=== PATIENT | female | born 1945 | race African-American/Black ===

== ENCOUNTER 2017-03-06 17:36 | Inpatient (IN) | payer OTHER, MEDICARE ==
[~2017-03-06] VITALS: Ht 167.6 cm; Wt 98.0 kg
[2017-03-06 17:47] VITALS: BP 218/94; PULSE 88; RESP 24; TEMP 97.5; O2SAT 93
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
[2017-03-06] MEDS ORDERED: SODIUM CHLORID 0.9% 500 ML INJ 500 ML IV ONE (19:00)
[2017-03-06] MEDS ORDERED: MORPHINE SULFATE 4 MG/ML INJ IV PUSH ONE ×2 (19:00→20:30)
[2017-03-06 19:04] VITALS: BP 141/91; PULSE 95; RESP 22; O2SAT 93
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
[2017-03-06] MEDS ORDERED: ASPI325T PO (19:12)
[2017-03-06] MEDS ORDERED: PROPOFOL 500 MG/50 ML BTL IV ONE (19:15)
[2017-03-06] MEDS ORDERED: PROPOFOL 500 MG/50 ML INJ 50 ML ONE (19:21)
[2017-03-06 20:00] VITALS: O2SAT 98
[2017-03-06] MEDS ORDERED: CARD120T4 PO (20:06)
[2017-03-06] MEDS ORDERED: OMEP20TA PO (20:06)
[2017-03-06] MEDS ORDERED: ISOS20TA PO (20:06)
[2017-03-06] MEDS ORDERED: LOSA50TA PO (20:06)
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
[2017-03-06 20:24] LABS: BASOPHIL % 0.3 % (0.0-2.0); EOSINOPHIL # 0.1 TH/MM3 (0-0.4); EOSINOPHIL % 0.5 % (0.0-4.0); HEMATOCRIT 44.1 % (35.0-46.0); HEMO FLAGS DIFF FINAL; LYMPH % 11.9 % (9.0-44.0); LYMPHOCYTE # 1.5 TH/MM3 (1.0-4.8); MEAN CELL VOLUME 90.9 FL (80.0-100.0); MEAN CORPUSCULAR HEMOGLOBIN 29.2 PG (27.0-34.0); MEAN CORPUSCULAR HGB CONC 32.1 % (32.0-36.0); MONO % 5.8 % (0.0-8.0); NEUT % 81.5 % (16.0-70.0); PLATELET COUNT 275 TH/MM3 (150-450); RED BLOOD COUNT 4.85 MIL/MM3 (4.00-5.30); RED CELL DISTRIBUTION WIDTH 14.2 % (11.6-17.2); WHITE BLOOD COUNT 12.2 TH/MM3 (4.0-11.0)
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
[2017-03-06] MEDS ORDERED: ceFAZolin 2 GM PREMIX 50 ML IV ONE (20:30)
[2017-03-06] MEDS ORDERED: TETANUS/DIPHTHERIA TOXOID ADULT 0.5 ML VIAL IM ONE (20:30)
[2017-03-06 20:42] LABS: BICARBONATE 21.4 MEQ/L (21.0-32.0); POTASSIUM 4.2 MEQ/L (3.5-5.1)
[2017-03-06] MEDS ORDERED: MAGNESIUM HYDROXIDE SUSP 30 ML CUP PO PRN (21:00)
[2017-03-06] MEDS ORDERED: CHLORHEXIDINE GLUCONATE 2 % 1 PACK (2 CLOTHS) TOP PRN (21:00)
[2017-03-06] MEDS ORDERED: MISCELLANEOUS NURSING INFORMATION XX SCH (21:00)
[2017-03-06] MEDS ORDERED: SODIUM CHLORIDE 0.9% FLUSH 10 ML FLUSH IV FLUSH PRN (21:00)
[2017-03-06] MEDS ORDERED: ONDANSETRON HCL 4 MG/2 ML VIAL IV PRN (21:00)
[2017-03-06] MEDS ORDERED: ACETAMINOPHEN 325 MG TAB PO PRN (21:00)
[2017-03-06 21:02] LABS: CKMB 2.2 NG/ML (0.5-3.6)
[2017-03-06] MEDS ORDERED: IOHEXOL 350 MG/ML 10 ML VIAL (for RAD DIAG) IV ONE (21:34)
[2017-03-06] MEDS: DOCUSATE SODIUM 100 MG CAP PO SCH (21:46)
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
[2017-03-06 21:55] VITALS: BP 188/79; PULSE 76; RESP 18; O2SAT 99
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
[2017-03-06] MEDS: ENALAPRILAT 1.25 MG/ML VIAL IV PRN (22:03)
[2017-03-06] MEDS: ENOXAPARIN SODIUM 30 MG/0.3 ML SYRINGE SQ SCH (22:14)
[2017-03-06] MEDS: IBUPROFEN 800 MG TAB PO SCH (22:15)
[2017-03-06] MEDS: DIAZEPAM 2 MG TAB PO SCH (22:15)
[2017-03-06 23:34] VITALS: BP 159/67
[2017-03-07] VITALS (14 sets, daily range): BP systolic 118–156; BP diastolic 56–96; PULSE 72–129; RESP 15–28; TEMP 97.7–98.1; O2SAT 96–100
[2017-03-07] MEDS: DILTIAZEM HCL 30 MG TAB PO SCH ×5 (00:33→22:35)
[2017-03-07] MEDS: CHLORHEXIDINE GLUCONATE 2 % 1 PACK (2 CLOTHS) TOP SCH (03:48)
--- NOTE | 2017-03-07 04:51 | RADRPT ---
EXAM DATE/TIME: 03/07/2017 04:03 [facility] COMPARISON: CHEST SINGLE AP, March 06, 2017, 20:02. INDICATIONS : Chest pain. MEDICAL HISTORY : None. SURGICAL HISTORY : None. ENCOUNTER: Subsequent ACUITY: 1 day PAIN SCORE: Non-responsive. LOCATION: chest FINDINGS: Right chest tube remains in place. No pneumothorax seen. Right chest wall emphysema again noted. Mild atelectasis left lung base again noted. There is elevation of the left hemidiaphragm, unchanged. Heart size stable, upper limits of normal. CONCLUSION: No significant change. Mild bibasilar atelectasis. Right chest tube without perceptible pneumothorax. Bertram Armendariz MD on March 07, 2017 at 4:48 Board Certified Radiologist. This report was verified electronically.
[2017-03-07 05:29] LABS: AUTOMATED NEUTROPHIL # 5.7 TH/MM3 (1.8-7.7); BASOPHIL % 0.6 % (0.0-2.0); EOSINOPHIL % 0.1 % (0.0-4.0); HEMATOCRIT 38.2 % (35.0-46.0); HEMO FLAGS DIFF FINAL; LYMPH % 20.1 % (9.0-44.0); LYMPHOCYTE # 1.6 TH/MM3 (1.0-4.8); MEAN CORPUSCULAR HEMOGLOBIN 29.2 PG (27.0-34.0); MEAN CORPUSCULAR HGB CONC 32.1 % (32.0-36.0); MONO % 9.1 % (0.0-8.0); NEUT % 70.1 % (16.0-70.0); PLATELET COUNT 259 TH/MM3 (150-450); RED CELL DISTRIBUTION WIDTH 14.3 % (11.6-17.2); WHITE BLOOD COUNT 8.1 TH/MM3 (4.0-11.0)
[2017-03-07 05:52] LABS: POTASSIUM 4.3 MEQ/L (3.5-5.1)
[2017-03-07] MEDS: ISOSORBIDE MONONITRATE 20 MG TAB PO SCH ×2 (05:52→13:44)
[2017-03-07] MEDS: DIAZEPAM 2 MG TAB PO SCH ×3 (05:52→21:19)
[2017-03-07] MEDS: IBUPROFEN 800 MG TAB PO SCH ×3 (05:53→21:19)
[2017-03-07] MEDS ORDERED: PANTOPRAZOLE SOD 20 MG DELAYED RELEASE TAB PO SCH (09:00)
[2017-03-07] MEDS: ENOXAPARIN SODIUM 30 MG/0.3 ML SYRINGE SQ SCH ×2 (09:10→19:31)
[2017-03-07] MEDS: LACTULOSE SYRUP 20 GM/30 ML CUP PO SCH (09:10)
[2017-03-07] MEDS: LOSARTAN 50 MG TAB PO SCH (09:11)
[2017-03-07] MEDS: DOCUSATE SODIUM 100 MG CAP PO SCH ×2 (09:12→19:31)
[2017-03-07] MEDS: PANTOPRAZOLE SOD 20 MG DELAYED RELEASE TAB PO SCH (09:15)
[2017-03-07] MEDS: RESP: ALBUTEROL 2.5 MG/IPRATROPIUM 0.5 MG NEB (SCH) NEB ×3 (12:00→19:45)
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
--- NOTE | 2017-03-07 17:46 | EKG ---
Date Performed: 03/06/2017 Time Performed: 18:00:04 PTAGE: 71 years EKG: SINUS TACHYCARDIA WITH FREQUENT VENTRICULAR PREMATURE COMPLEXES WITH OCCASIONAL SUPRAVENTRI CULAR PREMATURE COMPLEXES INFERIOR MYOCARDIAL INFARCTION ABNORMAL ECG NO PREVIOUS TRACING DOCTOR: Akira Perez Interpretating Date/Time 03/07/2017 17:45:57
[2017-03-08] VITALS (19 sets, daily range): BP systolic 104–139; BP diastolic 55–67; PULSE 73–146; RESP 12–24; TEMP 97.8–98.1; O2SAT 94–100
[2017-03-08] MEDS: CHLORHEXIDINE GLUCONATE 2 % 1 PACK (2 CLOTHS) TOP SCH (04:00)
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
[2017-03-08] MEDS: IBUPROFEN 800 MG TAB PO SCH ×3 (05:56→21:08)
[2017-03-08] MEDS: DIAZEPAM 2 MG TAB PO SCH ×3 (05:56→21:08)
[2017-03-08] MEDS: ISOSORBIDE MONONITRATE 20 MG TAB PO SCH ×2 (05:56→13:21)
[2017-03-08] MEDS: DILTIAZEM HCL 30 MG TAB PO SCH (05:56)
[2017-03-08] MEDS: ENALAPRILAT 1.25 MG/ML VIAL IV PRN (06:25)
[2017-03-08] MEDS ORDERED: BISACODYL EC 5 MG TABEC PO ONE (08:45)
[2017-03-08] MEDS ORDERED: BISACODYL 10 MG SUPP RECTAL ONE (08:45)
[2017-03-08] MEDS: LACTULOSE SYRUP 20 GM/30 ML CUP PO SCH (09:00)
[2017-03-08] MEDS: PANTOPRAZOLE SOD 20 MG DELAYED RELEASE TAB PO SCH ×2 (09:00→10:59)
[2017-03-08] MEDS: RESP: ALBUTEROL 2.5 MG/IPRATROPIUM 0.5 MG NEB (SCH) NEB ×4 (09:36→19:47)
[2017-03-08] MEDS: DOCUSATE SODIUM 100 MG CAP PO SCH ×2 (09:38→19:54)
[2017-03-08] MEDS: LOSARTAN 50 MG TAB PO SCH ×2 (09:38→11:00)
[2017-03-08] MEDS: ENOXAPARIN SODIUM 30 MG/0.3 ML SYRINGE SQ SCH ×2 (09:38→19:54)
[2017-03-08] MEDS: HYDROmorphone HCL PF 1 MG/ML VIAL IVP PRN ×2 (09:46→13:20)
[2017-03-08] MEDS ORDERED: DILTIAZEM HCL 25 MG/5 ML VIAL IVP ONE (10:00)
[2017-03-08] MEDS: DILTIAZEM INJ 125 MG in SODIUM CHLORIDE 0.9% INJ 100 ML IV SCH ×2 (10:59→20:32)
[2017-03-08 12:18] LABS: ALT (GPT) 22 U/L (10-53); ANION GAP 8 MEQ/L (5-15); AST (GOT) 25 U/L (15-37); BICARBONATE 27.2 MEQ/L (21.0-32.0); CHLORIDE 107 MEQ/L (98-107); GLOMERULAR FILTRATION RATE 44 ML/MIN (>89); MAGNESIUM 2.3 MG/DL (1.5-2.5); POTASSIUM 4.4 MEQ/L (3.5-5.1); SODIUM (NA) 142 MEQ/L (136-145)
[2017-03-08 12:25] LABS: ALKALINE PHOSPHATASE 55 U/L (45-117); BLOOD UREA NITROGEN 15 MG/DL (7-18); TOTAL BILIRUBIN ADULT 0.3 MG/DL (0.2-1.0)
[2017-03-08] MEDS: DILTIAZEM-CD 120 MG CAP ER PO SCH ×2 (13:20→19:54)
--- NOTE | 2017-03-08 16:32 | MB ---
cc: BJORN HUITRON ADDENDUM RECOMMENDATIONS 1. The patient has sleep apnea. I have spoken with the nurse who will contact the primary service as it certainly should be addressed given her obesity and lung issues. 2. Weight loss with low cholesterol/salt diet. Bjorn Huitron MD ASG/EO /12:04 PM /4:31 PM
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
[2017-03-08] MEDS: MAGNESIUM HYDROXIDE SUSP 30 ML CUP PO SCH (19:54)
[2017-03-09] VITALS (14 sets, daily range): BP systolic 102–164; BP diastolic 54–67; PULSE 60–84; RESP 13–24; TEMP 97.8–98.7; O2SAT 92–100
[2017-03-09 03:41] LABS: AUTOMATED NEUTROPHIL # 4.9 TH/MM3 (1.8-7.7); BASOPHIL % 0.4 % (0.0-2.0); EOSINOPHIL # 0.2 TH/MM3 (0-0.4); EOSINOPHIL % 2.8 % (0.0-4.0); HEMATOCRIT 37.1 % (35.0-46.0); HEMO FLAGS DIFF FINAL; LYMPH % 18.7 % (9.0-44.0); LYMPHOCYTE # 1.3 TH/MM3 (1.0-4.8); MEAN CELL VOLUME 90.1 FL (80.0-100.0); MEAN CORPUSCULAR HEMOGLOBIN 29.7 PG (27.0-34.0); MONO % 7.7 % (0.0-8.0); NEUT % 70.4 % (16.0-70.0); PLATELET COUNT 242 TH/MM3 (150-450); RED BLOOD COUNT 4.12 MIL/MM3 (4.00-5.30); RED CELL DISTRIBUTION WIDTH 14.1 % (11.6-17.2)
[2017-03-09] MEDS: CHLORHEXIDINE GLUCONATE 2 % 1 PACK (2 CLOTHS) TOP SCH (04:00)
--- NOTE | 2017-03-09 04:10 | RADRPT ---
EXAM DATE/TIME: 03/09/2017 03:05 [facility] COMPARISON: CHEST SINGLE AP, March 08, 2017, 2:46. INDICATIONS : Evaluate right side chest tube and pneumothorax. MEDICAL HISTORY : None. SURGICAL HISTORY : None. Rt. side chest tube ENCOUNTER: Subsequent ACUITY: 3 days PAIN SCORE: 7/10 LOCATION: Bilateral chest FINDINGS: A single AP semierect portable view of the chest was obtained and again demonstrates the right-sided chest tube in place with no visualized pneumothorax. The heart size remains enlarged and there is claudia vation of left hemidiaphragm again noted. There are multiple overlying electrocardiogram leads. CONCLUSION: 1. Right-sided chest tube in place with no visualized pneumothorax. 2. Cardiomegaly and elevation left hemidiaphragm again noted. Lito Ghotra MD on March 09, 2017 at 4:08 Board Certified Radiologist. This report was verified electronically.
[2017-03-09 04:12] LABS: ALKALINE PHOSPHATASE 52 U/L (45-117); TOTAL BILIRUBIN ADULT 0.3 MG/DL (0.2-1.0)
[2017-03-09 04:19] LABS: ALT (GPT) 19 U/L (10-53); ANION GAP 4 MEQ/L (5-15); AST (GOT) 24 U/L (15-37); BICARBONATE 29.6 MEQ/L (21.0-32.0); BLOOD UREA NITROGEN 24 MG/DL (7-18); CHLORIDE 106 MEQ/L (98-107); GLOMERULAR FILTRATION RATE 33 ML/MIN (>89); MAGNESIUM 2.3 MG/DL (1.5-2.5); POTASSIUM 4.4 MEQ/L (3.5-5.1); SODIUM (NA) 140 MEQ/L (136-145)
[2017-03-09] MEDS: DIAZEPAM 2 MG TAB PO SCH ×3 (05:18→21:22)
[2017-03-09] MEDS: ISOSORBIDE MONONITRATE 20 MG TAB PO SCH (05:18)
[2017-03-09] MEDS: IBUPROFEN 800 MG TAB PO SCH ×2 (05:18→13:39)
[2017-03-09] MEDS: DOCUSATE SODIUM 100 MG CAP PO SCH ×2 (08:57→21:22)
[2017-03-09] MEDS: PANTOPRAZOLE SOD 20 MG DELAYED RELEASE TAB PO SCH (08:57)
[2017-03-09] MEDS: DILTIAZEM-CD 120 MG CAP ER PO SCH ×2 (08:58→21:22)
[2017-03-09] MEDS: LACTULOSE SYRUP 20 GM/30 ML CUP PO SCH (08:58)
[2017-03-09] MEDS: ENOXAPARIN SODIUM 30 MG/0.3 ML SYRINGE SQ SCH ×2 (08:58→21:22)
[2017-03-09] MEDS ORDERED: BISACODYL EC 5 MG TABEC PO ONE (09:00)
[2017-03-09] MEDS ORDERED: BISACODYL 10 MG SUPP RECTAL ONE (09:00)
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
[2017-03-09] MEDS: RESP: ALBUTEROL 2.5 MG/IPRATROPIUM 0.5 MG NEB (SCH) NEB ×4 (10:24→20:52)
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
[2017-03-09] MEDS: MAGNESIUM HYDROXIDE SUSP 30 ML CUP PO SCH (21:22)
[2017-03-10] VITALS (14 sets, daily range): BP systolic 128–165; BP diastolic 58–95; PULSE 68–123; RESP 12–20; TEMP 97.8–98.4; O2SAT 92–99
[2017-03-10] MEDS: CHLORHEXIDINE GLUCONATE 2 % 1 PACK (2 CLOTHS) TOP SCH (04:00)
--- NOTE | 2017-03-10 04:13 | RADRPT ---
EXAM DATE/TIME: 03/10/2017 03:24 [facility] COMPARISON: CT THORAX W CONTRAST, March 06, 2017, 21:16. CHEST SINGLE AP, March 09, 2017, 3:05. INDICATIONS : Short of breath. MEDICAL HISTORY : None. SURGICAL HISTORY : None. ENCOUNTER: Subsequent ACUITY: 4 - 6 days PAIN SCORE: 0/10 LOCATION: Bilateral chest FINDINGS: Previously seen right chest tube has been removed. Subcutaneous emphysema is seen on the right with a tiny right apical pneumothorax. Left hemidiaphragm is elevated not changed with slight left lung bas e atelectasis. CONCLUSION: Tiny right apical pneumothorax. Zahira Dixon MD on March 10, 2017 at 4:10 Board Certified Radiologist. This report was verified electronically.
[2017-03-10 04:23] LABS: BASOPHIL % 0.7 % (0.0-2.0); EOSINOPHIL # 0.2 TH/MM3 (0-0.4); EOSINOPHIL % 2.9 % (0.0-4.0); HEMO FLAGS DIFF FINAL; LYMPH % 17.4 % (9.0-44.0); LYMPHOCYTE # 1.2 TH/MM3 (1.0-4.8); MEAN CELL VOLUME 90.9 FL (80.0-100.0); MEAN CORPUSCULAR HEMOGLOBIN 29.2 PG (27.0-34.0); MEAN CORPUSCULAR HGB CONC 32.2 % (32.0-36.0); MONO % 7.4 % (0.0-8.0); NEUT % 71.6 % (16.0-70.0); PLATELET COUNT 240 TH/MM3 (150-450); RED BLOOD COUNT 4.18 MIL/MM3 (4.00-5.30); RED CELL DISTRIBUTION WIDTH 14.1 % (11.6-17.2)
[2017-03-10 04:48] LABS: ALT (GPT) 23 U/L (10-53); ANION GAP 5 MEQ/L (5-15); AST (GOT) 26 U/L (15-37); BICARBONATE 30.2 MEQ/L (21.0-32.0); BLOOD UREA NITROGEN 17 MG/DL (7-18); CHLORIDE 106 MEQ/L (98-107); GLOMERULAR FILTRATION RATE 46 ML/MIN (>89); MAGNESIUM 2.3 MG/DL (1.5-2.5); POTASSIUM 4.2 MEQ/L (3.5-5.1); SODIUM (NA) 141 MEQ/L (136-145)
[2017-03-10 04:49] LABS: ALKALINE PHOSPHATASE 59 U/L (45-117); TOTAL BILIRUBIN ADULT 0.5 MG/DL (0.2-1.0)
[2017-03-10] MEDS: LOSARTAN 50 MG TAB PO SCH (08:27)
[2017-03-10] MEDS: DILTIAZEM-CD 120 MG CAP ER PO SCH ×2 (08:27→21:54)
[2017-03-10] MEDS: ENOXAPARIN SODIUM 30 MG/0.3 ML SYRINGE SQ SCH ×2 (08:27→21:55)
[2017-03-10] MEDS: PANTOPRAZOLE SOD 20 MG DELAYED RELEASE TAB PO SCH (08:27)
[2017-03-10] MEDS: DIAZEPAM 2 MG TAB PO SCH ×3 (08:28→21:54)
[2017-03-10] MEDS: LACTULOSE SYRUP 20 GM/30 ML CUP PO SCH (08:30)
[2017-03-10] MEDS: DOCUSATE SODIUM 100 MG CAP PO SCH ×2 (08:30→21:54)
[2017-03-10] MEDS: RESP: ALBUTEROL 2.5 MG/IPRATROPIUM 0.5 MG NEB (SCH) NEB ×4 (09:38→20:47)
[2017-03-10] MEDS ORDERED: DILTIAZEM HCL 25 MG/5 ML VIAL IV ONE ×2 (10:30→14:00)
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
[2017-03-10] MEDS: ASPIRIN EC 81 MG TABEC PO SCH (13:38)
[2017-03-10] MEDS ORDERED: DILTIAZEM HCL 30 MG TAB PO ONE (14:00)
--- NOTE | 2017-03-10 15:45 | ECHRPT ---
Indication: LV Function CONCLUSIONS The left ventricular systolic function is hyperdynamic with an estimated ejection fraction in the ra nge of 65- 70%. The right atrial size is mildly dilated. There is mild tricuspid valve regurgitation. The pulmonary valve is not well visualized. There is a small pericardial effusion present. A left sided pleural effusion is noted. No hemodynamically significant echocardiographic features were observed (no pre-tamponade physiology). BP: 165 / 64 HR: 91 Rhythm: Atrial fibrillation MEASUREMENTS (Male / Female) Normal Values Technical Quality:Fair 2D ECHO LV Diastolic Diameter PLAX 4.3 cm 4.2 - 5.9 / 3.9 - 5.3 cm LV Systolic Diameter PLAX 3.0 cm IVS Diastolic Thickness 1.0 cm 0.6 - 1.0 / 0.6 - 0.9 cm LVPW Diastolic Thickness 0.8 cm 0.6 - 1.0 / 0.6 - 0.9 cm LV Relative Wall Thickness 0.4 RV Internal Dim ED PLAX 2.3 cm LA Systolic Diameter LX 3.4 cm 3.0 - 4.0 / 2.7 - 3.8 cm M-MODE Aortic Root Diameter MM 3.0 cm AV Cusp Separation MM 2.0 cm DOPPLER Mitral E Point Velocity 50.7 cm/s Mitral A Point Velocity 85.7 cm/s Mitral E to A Ratio 0.6 TR Peak Velocity 360.0 cm/s TR Peak Gradient 51.8 mmHg FINDINGS LEFT VENTRICLE Normal left ventricular size and wall thickness. The left ventricular systolic function is hyperdynamic with an estimated ejection fraction in the ra nge of 65- 70%. RIGHT VENTRICLE Normal right ventricular size and systolic function. LEFT ATRIUM The left atrial size is normal. RIGHT ATRIUM The right atrial size is mildly dilated. ATRIAL SEPTUM Normal atrial septal thickness without atrial level shunting by limited color doppler interrogation. AORTA The aortic root and proximal ascending aorta are normal in size on limited imaging. MITRAL VALVE Structurally normal mitral valve. No mitral valve stenosis or regurgitation. AORTIC VALVE Trileaflet aortic valve. No aortic valve stenosis or regurgitation. TRICUSPID VALVE There is mild tricuspid valve regurgitation. PULMONARY VALVE The pulmonary valve is not well visualized. VESSELS The inferior vena cava is normal in size. PERICARDIUM There is a small pericardial effusion present. A left sided pleural effusion is noted. No hemodynamically significant echocardiographic features were observed (no pre-tamponade physiology). Manoj Madrigal MD, FACC (Electronically Signed) Final Date:10 March 2017 15:44
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
[2017-03-10] MEDS: MAGNESIUM HYDROXIDE SUSP 30 ML CUP PO SCH (21:54)
[2017-03-11] VITALS (11 sets, daily range): BP systolic 130–188; BP diastolic 59–113; PULSE 72–134; RESP 18–24; TEMP 97.9–98.3; O2SAT 93–96
[2017-03-11] MEDS: CHLORHEXIDINE GLUCONATE 2 % 1 PACK (2 CLOTHS) TOP SCH (04:00)
[2017-03-11] MEDS: DIAZEPAM 2 MG TAB PO SCH ×3 (05:21→22:37)
--- NOTE | 2017-03-11 05:42 | RADRPT ---
EXAM DATE/TIME: 03/11/2017 04:38 [facility] COMPARISON: CHEST SINGLE AP, March 10, 2017, 3:24. INDICATIONS : Short of breath. MEDICAL HISTORY : None. SURGICAL HISTORY : None. ENCOUNTER: Subsequent ACUITY: 4 - 6 days PAIN SCORE: Non-responsive. LOCATION: Bilateral chest FINDINGS: The lungs are clear without infiltrate, nodule, or mass. There is no appreciable pleural effusion fo r technique. Heart and mediastinum are unremarkable. Previously seen right pneumothorax is no longer seen. Slight subcutaneous emphysema remains on the right. The rest of the examination has not signif icantly changed. CONCLUSION: No definite pneumothorax is seen for technique. Zahira Dixon MD on March 11, 2017 at 5:40 Board Certified Radiologist. This report was verified electronically.
[2017-03-11] MEDS: ASPIRIN EC 81 MG TABEC PO SCH (07:58)
[2017-03-11] MEDS: DILTIAZEM-CD 120 MG CAP ER PO SCH (07:58)
[2017-03-11] MEDS: DOCUSATE SODIUM 100 MG CAP PO SCH ×2 (07:58→20:11)
[2017-03-11] MEDS: PANTOPRAZOLE SOD 20 MG DELAYED RELEASE TAB PO SCH (07:58)
[2017-03-11] MEDS: LOSARTAN 50 MG TAB PO SCH (07:58)
[2017-03-11] MEDS: LACTULOSE SYRUP 20 GM/30 ML CUP PO SCH (07:58)
[2017-03-11] MEDS: ENOXAPARIN SODIUM 30 MG/0.3 ML SYRINGE SQ SCH ×2 (07:59→20:11)
[2017-03-11] MEDS ORDERED: DILTIAZEM 60 MG PO ONE (10:00)
[2017-03-11] MEDS: SODIUM CHLOR 0.9% 1000 ML INJ 1,000 ML IV SCH ×2 (10:45→20:12)
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
[2017-03-11] MEDS ORDERED: DILTIAZEM HCL 60 MG TAB PO ONE (11:00)
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
--- NOTE | 2017-03-11 17:21 | RADRPT ---
EXAM DATE/TIME: 03/11/2017 16:33 [facility] COMPARISON: No previous studies available for comparison. INDICATIONS : Syncope. MEDICAL HISTORY : Hypertension. Afib. Joint pain. Rib fractures. Sleep apnea. Hyperlipidemia. SURGICAL HISTORY : Cholecystectomy. Hysterectomy. Splenectomy. Colectomy with colostomy. ENCOUNTER: Initial ACUITY: 1 day PAIN SCORE: 4/10 LOCATION: Bilateral neck PEAK SYSTOLIC VELOCITIES (cm/sec): ICA/CCA RATIO: Right: 1.8 Left: 1.3 ICA: Right: 124 Left: 109 CCA: Right: 70 Left: 84 ECA: Right: 65 Left: 90 VERTEBRAL: Right: 88 antegrade Left: 98 antegrade Elevated flow velocities and ICA/CCA ratios have been found to correlate with increased degrees of vessel stenosis, calculated as percentage of diameter relative to a normal segment of distal ICA/CCA FINDINGS: RIGHT CAROTID: Trace noncalcified plaque. No significant stenosis is visualized. The waveforms are within normal li mits. LEFT CAROTID: Trace noncalcified plaque. No significant stenosis is visualized. The waveforms are within normal li mits. VERTEBRAL ARTERIES: Antegrade flow is seen in both vertebral arteries. MISCELLANEOUS: Slightly prominent left cervical node measuring 2.2 x 0.6 x 1.3 cm. Node demonstrates normal fatty hilum. CONCLUSION: 1. No evidence for hemodynamically significant carotid artery stenosis. 2. Antegrade vertebral artery flow bilaterally. 3. Incidental note of slightly prominent left cervical node with normal-appearing architecture by ult rasound. This may be reactive in etiology. Clinical correlation is recommended. Andrew Green MD on March 11, 2017 at 17:14 Board Certified Radiologist. This report was verified electronically.
[2017-03-11] MEDS: MAGNESIUM HYDROXIDE SUSP 30 ML CUP PO SCH (20:11)
[2017-03-11] MEDS: DILTIAZEM-CD 180 MG CAP ER PO SCH (20:11)
[2017-03-12] VITALS (7 sets, daily range): BP systolic 107–149; BP diastolic 56–74; PULSE 63–109; RESP 14–20; TEMP 96.8–99.4; O2SAT 92–95
[2017-03-12] MEDS: CHLORHEXIDINE GLUCONATE 2 % 1 PACK (2 CLOTHS) TOP SCH (04:00)
[2017-03-12] MEDS: DIAZEPAM 2 MG TAB PO SCH ×3 (05:53→20:12)
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
[2017-03-12] MEDS: DILTIAZEM-CD 180 MG CAP ER PO SCH ×2 (08:50→20:12)
[2017-03-12] MEDS: ASPIRIN EC 81 MG TABEC PO SCH (08:50)
[2017-03-12] MEDS: ENOXAPARIN SODIUM 30 MG/0.3 ML SYRINGE SQ SCH ×2 (08:50→20:13)
[2017-03-12] MEDS: PANTOPRAZOLE SOD 20 MG DELAYED RELEASE TAB PO SCH (08:52)
[2017-03-12] MEDS: DOCUSATE SODIUM 100 MG CAP PO SCH ×2 (08:53→20:12)
[2017-03-12] MEDS: LACTULOSE SYRUP 20 GM/30 ML CUP PO SCH (08:53)
[2017-03-12] MEDS ORDERED: DILTIAZEM HCL 25 MG/5 ML VIAL IV ONE (11:00)
[2017-03-12 11:32] LABS: HEMATOCRIT 40.6 % (35.0-46.0); MEAN CELL VOLUME 91.2 FL (80.0-100.0); MEAN CORPUSCULAR HEMOGLOBIN 28.9 PG (27.0-34.0); MEAN CORPUSCULAR HGB CONC 31.6 % (32.0-36.0); PLATELET COUNT 254 TH/MM3 (150-450); RED BLOOD COUNT 4.45 MIL/MM3 (4.00-5.30); RED CELL DISTRIBUTION WIDTH 14.3 % (11.6-17.2); REVIEW FLAG FINAL; WHITE BLOOD COUNT 7.3 TH/MM3 (4.0-11.0)
[2017-03-12] MEDS: DILTIAZEM INJ 125 MG in SODIUM CHLORIDE 0.9% INJ 100 ML IV SCH ×2 (13:51→22:48)
[2017-03-12 13:58] LABS: BICARBONATE 30.1 MEQ/L (21.0-32.0); POTASSIUM 3.8 MEQ/L (3.5-5.1)
[2017-03-12] MEDS: MAGNESIUM HYDROXIDE SUSP 30 ML CUP PO SCH ×2 (20:12→20:13)
[2017-03-13] VITALS (7 sets, daily range): BP systolic 108–146; BP diastolic 56–66; PULSE 56–101; RESP 18–20; TEMP 97.6–98.4; O2SAT 91–99
[2017-03-13] MEDS: CHLORHEXIDINE GLUCONATE 2 % 1 PACK (2 CLOTHS) TOP SCH (04:00)
[2017-03-13] MEDS: DIAZEPAM 2 MG TAB PO SCH ×3 (05:33→22:12)
[2017-03-13] MEDS: DILTIAZEM INJ 125 MG in SODIUM CHLORIDE 0.9% INJ 100 ML IV SCH ×2 (08:50→16:41)
[2017-03-13] MEDS: DILTIAZEM-CD 180 MG CAP ER PO SCH ×2 (08:57→22:12)
[2017-03-13] MEDS: ASPIRIN EC 81 MG TABEC PO SCH (08:57)
[2017-03-13] MEDS: PANTOPRAZOLE SOD 20 MG DELAYED RELEASE TAB PO SCH (08:57)
[2017-03-13] MEDS: DOCUSATE SODIUM 100 MG CAP PO SCH ×2 (08:58→22:12)
[2017-03-13] MEDS: ENOXAPARIN SODIUM 30 MG/0.3 ML SYRINGE SQ SCH ×2 (08:58→22:12)
[2017-03-13] MEDS: LACTULOSE SYRUP 20 GM/30 ML CUP PO SCH (08:58)
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
[2017-03-13] MEDS: METOPROLOL TARTRATE 25 MG TAB PO SCH ×2 (13:59→22:12)
--- NOTE | 2017-03-13 20:23 | RADRPT ---
EXAM DATE/TIME: 03/13/2017 19:48 [facility] COMPARISON: CT THORAX W CONTRAST, March 06, 2017, 21:16. INDICATIONS : Rotator cuff tear. MEDICAL HISTORY : Hypertension. SURGICAL HISTORY : Splenectomy. Hysterectomy. Cholecystectomy. Colostomy. ENCOUNTER: Subsequent ACUITY: 1 day PAIN SCORE: 3/10 LOCATION: Right shoulder TECHNIQUE: Multiplanar, multisequence MRI examination was performed without contrast. FINDINGS: There is a full-thickness rotator cuff tear involving distal supraspinatus. The tear is approximately 29 mm anterior to posterior and 33 mm retracted. There is diffuse thinning of the distal infraspinat us without a measurable tear. No atrophy of the rotator cuff muscles. Severe subacromial/subdeltoid bursitis. Type II acromion with mild flat/broad subacromial spurring noted. There is moderate to severe osteoar thritis of the acromioclavicular joint and with hypertrophic changes contributing to mild narrowing o f the medial supraspinatus outlet. Glenohumeral joint alignment is within normal limits. There is mild osteoarthritis posterior/superior labrum is torn, most likely chronic. Long head biceps tendon intact. No glenohumeral joint capsular thickening seen. Incidentally seen on the study is focal intercostal induration between the right second and third rib s and appears to be the previous location of a chest tube as evident on the comparison chest CT. CONCLUSION: 1. 29 x 33 mm full thickness rotator cuff tear involving distal supraspinatus. There is diffuse attri tion/thinning of infraspinatus without measurable tear. 2. Severe subacromial/subdeltoid bursitis. 3. Mild subacromial spurring and moderate to severe osteoarthritis of the acromioclavicular joint. 4. Mild glenohumeral joint osteoarthritis and tear of the posterior/superior labrum. 5. Right chest tube has been removed since the higher CT. Focal intercostal induration noted. Bertram Armendariz MD on March 13, 2017 at 20:15 Board Certified Radiologist. This report was verified electronically.
[2017-03-13] MEDS: MAGNESIUM HYDROXIDE SUSP 30 ML CUP PO SCH (21:00)
[2017-03-14] VITALS (7 sets, daily range): BP systolic 139–160; BP diastolic 65–95; PULSE 44–115; RESP 18–20; TEMP 97.6–98.4; O2SAT 94–96
[2017-03-14] MEDS: CHLORHEXIDINE GLUCONATE 2 % 1 PACK (2 CLOTHS) TOP SCH (04:00)
[2017-03-14] MEDS: DIAZEPAM 2 MG TAB PO SCH ×3 (06:29→20:52)
[2017-03-14] MEDS: DOCUSATE SODIUM 100 MG CAP PO SCH ×2 (09:56→20:38)
[2017-03-14] MEDS: PANTOPRAZOLE SOD 20 MG DELAYED RELEASE TAB PO SCH (09:56)
[2017-03-14] MEDS: DILTIAZEM-CD 180 MG CAP ER PO SCH ×2 (09:56→20:39)
[2017-03-14] MEDS: LACTULOSE SYRUP 20 GM/30 ML CUP PO SCH (09:56)
[2017-03-14] MEDS: METOPROLOL TARTRATE 25 MG TAB PO SCH ×2 (09:56→20:38)
[2017-03-14] MEDS: ENOXAPARIN SODIUM 30 MG/0.3 ML SYRINGE SQ SCH ×2 (09:56→20:38)
[2017-03-14] MEDS: ASPIRIN EC 81 MG TABEC PO SCH (09:56)
[2017-03-14] MEDS ORDERED: PILL SPLITTER OTHER PRN (11:15)
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
[2017-03-14] MEDS ORDERED: KETOROLAC TROMETHAMINE 30 MG/ML (IVP) VIAL IV PUSH ONE (12:15)
[2017-03-14] MEDS: MAGNESIUM HYDROXIDE SUSP 30 ML CUP PO SCH (20:52)
[2017-03-15] VITALS (8 sets, daily range): BP systolic 121–150; BP diastolic 61–72; PULSE 57–120; RESP 18–20; TEMP 97.4–98.1; O2SAT 74–95
[2017-03-15] MEDS: CHLORHEXIDINE GLUCONATE 2 % 1 PACK (2 CLOTHS) TOP SCH (04:00)
[2017-03-15] MEDS: DIAZEPAM 2 MG TAB PO SCH ×3 (06:00→20:35)
[2017-03-15] MEDS: LACTULOSE SYRUP 20 GM/30 ML CUP PO SCH (08:58)
[2017-03-15] MEDS: DOCUSATE SODIUM 100 MG CAP PO SCH ×2 (08:58→20:34)
[2017-03-15] MEDS: ASPIRIN EC 81 MG TABEC PO SCH (08:59)
[2017-03-15] MEDS: ENOXAPARIN SODIUM 30 MG/0.3 ML SYRINGE SQ SCH ×2 (08:59→20:35)
[2017-03-15] MEDS: PANTOPRAZOLE SOD 20 MG DELAYED RELEASE TAB PO SCH (08:59)
[2017-03-15] MEDS: DILTIAZEM-CD 180 MG CAP ER PO SCH ×2 (08:59→20:35)
[2017-03-15] MEDS: METOPROLOL TARTRATE 25 MG TAB PO SCH ×2 (08:59→20:35)
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
--- NOTE | 2017-03-15 11:04 | HHI.DCPOC ---
Discharge Care Plan Diagnosis: (1) Pneumothorax (2) Left foot pain (3) Atrial fibrillation with rapid ventricular response (4) Right rotator cuff tear Goals to Promote Your Health * To prevent worsening of your condition and complications * To maintain your health at the optimal level Directions to Meet Your Goals Take your medications as prescribed Follow your dietary instruction Follow activity as directed Keep your appointments as scheduled Take your immunizations and boosters as scheduled If your symptoms worsen call your PCP, if no PCP go to Urgent Care Center or Emergency Room Smoking is Dangerous to Your Health. Avoid second hand smoke Call the 24-hour hour crisis hotline for domestic abuse at Lito Jimneez DO Mar 15, 2017 11:04
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
[2017-03-15] MEDS ORDERED: METOPROLOL TARTRATE 25 MG TAB PO ONE (12:00)
[2017-03-15] MEDS ORDERED: KETOROLAC TROMETHAMINE 30 MG/ML (IVP) VIAL IV PUSH ONE (12:00)
--- NOTE | 2017-03-15 13:36 | EKG ---
Date Performed: 03/14/2017 Time Performed: 11:48:07 PTAGE: 71 years EKG: Sinus rhythm WITH MARKED SINUS ARRHYTHMIA WITH FIRST DEGREE AV BLOCK MODERATE VOLTAGE CRITERIA FOR LVH, CONSIDER NORMAL VARIANT ABNORMAL ECG PREVIOUS TRACING : 03/06/2017 18.00 Compared to prior tracing no significant change DOCTOR: Harsh Downey Interpretating Date/Time 03/15/2017 13:33:20
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
[2017-03-15] MEDS: MAGNESIUM HYDROXIDE SUSP 30 ML CUP PO SCH (20:35)
[2017-03-16] VITALS: BP 125/57; PULSE 64; RESP 18; TEMP 97.5; O2SAT 94
[2017-03-16] MEDS: CHLORHEXIDINE GLUCONATE 2 % 1 PACK (2 CLOTHS) TOP SCH (03:14)
[2017-03-16 04:00] VITALS: BP 115/56; PULSE 71; RESP 18; TEMP 97.6; O2SAT 95
[2017-03-16] MEDS: DIAZEPAM 2 MG TAB PO SCH (05:06)
[2017-03-16] MEDS: LACTULOSE SYRUP 20 GM/30 ML CUP PO SCH (07:38)
[2017-03-16] MEDS: DOCUSATE SODIUM 100 MG CAP PO SCH (07:38)
[2017-03-16] MEDS: METOPROLOL TARTRATE 25 MG TAB PO SCH (07:40)
[2017-03-16] MEDS: ASPIRIN EC 81 MG TABEC PO SCH (07:40)
[2017-03-16] MEDS: DILTIAZEM-CD 180 MG CAP ER PO SCH (07:40)
[2017-03-16] MEDS: PANTOPRAZOLE SOD 20 MG DELAYED RELEASE TAB PO SCH (07:40)
[2017-03-16] MEDS: ENOXAPARIN SODIUM 30 MG/0.3 ML SYRINGE SQ SCH (07:41)
[2017-03-16 08:00] VITALS: BP 170/72; PULSE 89; RESP 20; TEMP 97.7; O2SAT 93
[2017-03-16 08:15] VITALS: PULSE 77
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
[2017-03-16] MEDS ORDERED: METO25TA3 PO (09:22)
[2017-03-16] MEDS ORDERED: CARD180C5 PO (09:22)
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
[2017-03-16 12:00] VITALS: BP 148/68; PULSE 84; RESP 20; TEMP 98; O2SAT 93
== END 2017-03-16 12:39 | disposition home or self-care (01) | DRG 200 ==
LOC: NEPC 17:36 → NEDA 21:17 → N03B 23:46 → N04A 03-11 15:42
PROVIDERS: ADMIT Family Medicine; ATTEND Family Medicine
PROC: 0W9930Z Drainage of Right Pleural Cavity with Drainage Device, Percutaneous Approach (ICD-10-PCS; principal; 2017-03-06)
DX: S27.0XXA Traumatic pneumothorax, initial encounter (principal); S27.321A Contusion of lung, unilateral, initial encounter; I48.0 Paroxysmal atrial fibrillation; J90 Pleural effusion, not elsewhere classified; S46.011A Strain of muscle(s) and tendon(s) of the rotator cuff of right shoulder, initial encounter; G47.33 Obstructive sleep apnea (adult) (pediatric); E78.5 Hyperlipidemia, unspecified; M19.011 Primary osteoarthritis, right shoulder; E66.9 Obesity, unspecified; I12.9 Hypertensive chronic kidney disease with stage 1 through stage 4 chronic kidney disease, or unspecified chronic kidney disease; N18.9 Chronic kidney disease, unspecified; N28.9 Disorder of kidney and ureter, unspecified; M76.62 Achilles tendinitis, left leg; Z68.34 Body mass index [BMI] 34.0-34.9, adult; Z90.81 Acquired absence of spleen; Z79.82 Long term (current) use of aspirin; V43.52XA Car driver injured in collision with other type car in traffic accident, initial encounter
CPT/HCPCS: 32551; 70450; 71010; 71260; 72125; 73221; 73630; 74177; 76937; 80048; 80053; 82550; 82552; 83735; 84484; 85025; 85027; 87641; 90471; 90714; 93005; 93306; 93880; 94150; 94640; 94664; 96361; 96365; 96375; 96376; 99156; J0690; J1170; J1650; J1885; J2270; J7030; J7040; Q9967